=== PATIENT | female | born 1955 | race Caucasian/White ===

== ENCOUNTER 2017-08-06 12:13 | Emergency (ER) | payer BC, OTHER ==
[~2017-08-06 12:13] MED LIST: ESTR.625 PO; LORTA5 PO; LOVA40TA PO; OMEP20TA39 PO; ZOLP10TA3 PO
[2017-08-06 12:14] VITALS: BP 156/78; PULSE 71; RESP 16; TEMP 97.6; O2SAT 96
--- NOTE | 2017-08-06 13:28 | RADRPT ---
EXAM DATE/TIME: 08/06/2017 13:05 [facility] COMPARISON: No previous studies available for comparison. INDICATIONS : Fell on left hand, MEDICAL HISTORY : None. SURGICAL HISTORY : None. ENCOUNTER: Initial ACUITY: 1 day PAIN SCORE: 5/10 LOCATION: Left hand FINDINGS: Three view examination of the left hand demonstrates no soft tissue swelling, dislocation, or fractur e. The carpal bones appear intact. The interphalangeal and metacarpophalangeal joints are intact. Bony mineralization is normal. CONCLUSION: Negative for fracture or dislocation. Follow up in 7-10 days is suggested if symptoms persist. Truong Melton MD FACR on August 06, 2017 at 13:25 Board Certified Radiologist. This report was verified electronically.
--- NOTE | 2017-08-06 13:29 | RADRPT ---
EXAM DATE/TIME: 08/06/2017 13:05 [facility] COMPARISON: No previous studies available for comparison. INDICATIONS : Fell on right knee MEDICAL HISTORY : None. SURGICAL HISTORY : None. ENCOUNTER: Initial ACUITY: 1 day PAIN SCORE: 2/10 LOCATION: Right knee FINDINGS: Four view examination of the right knee demonstrates no evidence of fracture or dislocation. Bony mi neralization is normal. Minimal loss of articular cartilage medial compartment The articular surface s are intact. The suprapatellar soft tissues have a normal configuration. CONCLUSION: Mild degenerative changes otherwise negative Truong Melton MD FACR on August 06, 2017 at 13:26 Board Certified Radiologist. This report was verified electronically.
--- NOTE | 2017-08-06 13:57 | PD ---
HPI Chief Complaint: Injury Time Seen by Provider: 13:18 Travel History International Travel<30 days: No Contact w/Intl Traveler<30days: No Traveled to known affect area: No History of Present Illness HPI This is a 8-year-old female here with left hand and right knee pain after she fell from a standing position. Reports she [place] walking [place] [facility] she stepped on a pebble which caused her to fall onto her outstretched hand. No head injury loss of consciousness. Patient is not anticoagulated. She denies headache, neck pain, chest pain, shortness of breath , abdominal pain, paresthesia or weakness of the extremities. Reports constant , throbbing pain localized to the left hand. Aggravated by palpation of the area and relieved with rest. Denies paresthesia or weakness of the extremity. PFSH Past Medical History Blood Disorders: No Cancer: No Cardiovascular Problems: No Diminished Hearing: No Endocrine: No Genitourinary: No Hypertension: Yes Musculoskeletal: Yes (fracture left foot, CHRONIC NECK PAIN) Neurologic: No Psychiatric: No Reproductive: No Respiratory: No ?: Not Past Surgical History Appendectomy: Yes Hysterectomy: Yes Social History Alcohol Use: Yes (2 x week) Tobacco Use: No Substance Use: No Allergies-Medications (Allergen,Severity, Reaction): Coded Allergies: latex (Verified Allergy, Severe, Rash, 08/06/17) Reported Meds & Prescriptions Reported Meds & Active Scripts Active Reported Hm Omeprazole (Omeprazole) 20 Mg Tab 40 Mg PO DAILY Lovastatin 40 Mg Tab 40 Mg PO HS Hydrocodone/Acetaminophen 5 mg/325 mg 1 Tab 1 Tab PO BID PRN Premarin (Estrogens Conjugated) 0.625 Mg Tab 0.625 Mg PO DIRECTED Ambien 10 Mg Tab (Zolpidem Tartrate) 10 Mg Tab 10 Mg PO HSPRN Review of Systems Except as stated in HPI: all other systems reviewed are Neg General / Constitutional: No: Fever Eyes: No: Visual changes HENT: No: Headaches Cardiovascular: No: Chest Pain or Discomfort Respiratory: No: Shortness of Breath Gastrointestinal: No: Abdominal Pain Genitourinary: No: Dysuria Physical Exam Narrative GENERAL: Alert and well-appearing 8-year-old female SKIN: Warm and dry. Small abrasion to the right anterior knee. No active bleeding. HEAD: Normocephalic. Atraumatic EYES: No injection or drainage. NECK: Supple, trachea midline. No midline spine tenderness CARDIOVASCULAR: Regular rate and rhythm without murmurs, gallops, or rubs. RESPIRATORY: Breath sounds equal bilaterally. No accessory muscle use. GASTROINTESTINAL: Abdomen soft, non-tender, nondistended. MUSCULOSKELETAL: No cyanosis. LUE: + Tenderness to the dorsal aspect of the hand. No obvious deformity. Mild amount of swelling. Normal sensation in all fingers. Freely move the fingers. Brisk cap refill. RLE:+ Tenderness to the anterior aspect of the knee. No obvious deformity. No joint effusion. Normal sensation distally. Full range of motion. Data Data Last Documented VS Vital Signs Date Time Temp Pulse Resp B/P (MAP) Pulse Ox O2 Delivery O2 Flow Rate FiO2 08/06/17 12:14 97.6 71 16 156/78 (104) 96 Orders Orders Hand, Complete ([id number]) (08/06/17 ) Knee, Complete (4vws) (08/06/17 ) MDM Medical Decision Making Medical Screen Exam Complete: Yes Emergency Medical Condition: Yes Differential Diagnosis hand fracture, contusion, sprain Knee fracture, contusion, sprain Narrative Course 8-year-old female here with left hand and right knee pain after she fell from standing position. Extremities are neurovascularly intact. X-rays are negative for fracture. Patient's left hand was placed in a volar wrist splint for comfort. She was instructed to follow-up with her primary doctor for recheck. Diagnosis Primary Impression: Contusion of left hand Qualified Codes: S60.222A - Contusion of left hand, initial encounter Referrals: Primary Care Physician Additional Instructions: Ice and elevate the extremity. Splint for comfort. Tylenol and ibuprofen as needed for pain. Follow-up with your primary doctor for recheck in 1 week. If you are having persistent pain he may need a repeat x-ray Disposition: DISCHARGE HOME Condition: Stable Nida Gregory August 06, 2017 13:57
== END 2017-08-06 14:08 | disposition home or self-care (01) ==
LOC: PHEFT 12:13
DX: S60.222A Contusion of left hand, initial encounter (principal); M25.561 Pain in right knee; W19.XXXA Unspecified fall, initial encounter; I10 Essential (primary) hypertension
CPT/HCPCS: 73130; 73564; 99284